=== PATIENT | female | born 1940 | race American Indian/Alaskan Native ===

== ENCOUNTER 2018-04-30 10:55 | Day surgery (SDC) | payer MEDICARE ==
[~2018-04-30 10:55] MED LIST: IOPIDINE OS ONE
[2018-04-30] MEDS ORDERED: AK-Dilate ONE (11:07)
[2018-04-30] MEDS ORDERED: MYDRIACYL ONE (11:07)
[2018-04-30] MEDS ORDERED: IOPIDINE ONE (11:07)
[2018-04-30] MEDS ORDERED: IOPIDINE OS ONE ×2 (11:29→12:15)
[2018-04-30] MEDS ORDERED: MYDRIACYL OS ONE (11:29)
[2018-04-30] MEDS ORDERED: AK-Dilate OS ONE (11:29)
[2018-04-30 11:47] VITALS: BP 127/63
== END 2018-04-30 12:20 | disposition home or self-care (01) ==
LOC: OR 10:55
PROVIDERS: ATTEND Ophthalmology
DX: H26.492 Other secondary cataract, left eye (principal); E78.00 Pure hypercholesterolemia, unspecified; I10 Essential (primary) hypertension; K21.9 Gastro-esophageal reflux disease without esophagitis; M19.90 Unspecified osteoarthritis, unspecified site; F32.9 Major depressive disorder, single episode, unspecified; Z96.651 Presence of right artificial knee joint; Z98.51 Tubal ligation status; Z98.890 Other specified postprocedural states; Z90.710 Acquired absence of both cervix and uterus; Z79.899 Other long term (current) drug therapy; Z79.82 Long term (current) use of aspirin; Z98.42 Cataract extraction status, left eye; Z98.41 Cataract extraction status, right eye; Z86.2 Personal history of diseases of the blood and blood-forming organs and certain disorders involving the immune mechanism; Z88.8 Allergy status to other drugs, medicaments and biological substances